=== PATIENT | male | born 1980 | race Caucasian/White ===

== ENCOUNTER → 2019-12-02 | Outpatient (CLI) | payer MEDICARE ==
--- NOTE | 2019-12-02 18:27 | Diagnostic Imaging Report ---
INDICATION: Pain. COMPARISON: None available. TECHNIQUE: Four radiographs of the left femur dated December 02, 2019. FINDINGS: A longstem left total knee arthroplasty is noted with resection of the mid to distal femur with prosthesis in place. No evidence of hardware complication. No acute fracture or dislocation. No destructive osseous process. No suspicious radiopaque foreign body. Cement material is noted about the tip of the femoral prosthesis. IMPRESSION: Extensive postsurgical changes without evidence of hardware complication or acute osseous abnormality. Dictated by: Dictated on workstation # [id number]
--- NOTE | 2019-12-03 09:49 | Diagnostic Imaging Report ---
INDICATION: Nasal surgery 1 year ago. Patient is concerned of a broken nasal bone. FINDINGS: 3 views. Nasal bone appears intact as does the inferior nasal spine. Nasal septum shows mild deviation to the right. No fractures are demonstrated. The paranasal sinuses are well-aerated and clear. IMPRESSION: 1. No evidence of nasal bone fracture. Nasal septum is deviated to the right. 2. Paranasal sinuses are well-aerated and clear. Dictated by: Dictated on workstation # [id number]
== END ==
LOC: RAD FS 15:00
PROVIDERS: ATTEND Nurse Practitioner Family
DX: M79.652 Pain in left thigh (principal); J34.89 Other specified disorders of nose and nasal sinuses; J34.2 Deviated nasal septum; Z96.652 Presence of left artificial knee joint
CPT/HCPCS: 70150; 73552

== ENCOUNTER → 2020-09-10 | Outpatient (CLI) | payer MEDICARE ==
--- NOTE | 2020-09-10 09:41 | Diagnostic Imaging Report ---
PROCEDURE: CT sinuses without contrast TECHNIQUE: Multiple contiguous axial images were obtained through the sinuses without the use of intravenous contrast. Coronal and sagittal reformations were then performed. Auto Exposure Controls were utilized during the CT exam to meet ALARA standards for radiation dose reduction. INDICATION: Chronic rhinitis and chronic sinusitis with chronic headaches. No prior studies are available for comparison. FINDINGS: The frontal sinus is clear. There is opacification of several anterior ethmoid air cells. Sphenoid sinuses clear. Mastoids are well aerated. Bilateral maxillary sinuses are clear. There are some postsurgical changes involving medial wall left maxillary sinus. No mucosal thickening or air-fluid levels are seen within the maxillary sinuses. Ostiomeatal complexes are patent. IMPRESSION: No evidence of sinusitis. Dictated by: Dictated on workstation # [id number]
== END ==
LOC: RAD FS 08:30
PROVIDERS: ATTEND Nurse Practitioner Family
DX: J32.9 Chronic sinusitis, unspecified (principal); J31.0 Chronic rhinitis; Z98.890 Other specified postprocedural states
CPT/HCPCS: 70486

== ENCOUNTER → 2020-09-25 | Outpatient (CLI) | payer MEDICARE ==
[~2020-09-25] MED LIST: GADOBUTROL 7.5 MMOL/7.5 ML (GADAVIST) VIAL IV ONE
--- NOTE | 2020-09-25 10:28 | Diagnostic Imaging Report ---
PROCEDURE: MR imaging of the brain with and without contrast. TECHNIQUE: Multiplanar, multisequence MR imaging of the brain was performed with and without contrast. INDICATION: Migraines for 2 months. 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 COMPARISON: none Findings: No acute ischemia, mass, or hemorrhage. No abnormal enhancement. No focal signal abnormalities are seen. The ventricles, cortical sulci, and basilar cisterns are symmetric and unremarkable. There is flattening of the pituitary. The major intracranial flow voids are intact. The brainstem and posterior fossa are unremarkable. The paranasal sinuses and mastoid air cells demonstrate normal signal characteristics. The globes and orbits are symmetric and unremarkable. The scalp and calvarium have a normal appearance. Impression: 1. No acute ischemia, mass, or hemorrhage. No focal signal abnormalities. No abnormal enhancement to suggest intracranial metastatic disease. Dictated by: Dictated on workstation # [id number]
== END ==
LOC: RAD 08:45
PROVIDERS: ATTEND Nurse Practitioner Family
DX: G43.909 Migraine, unspecified, not intractable, without status migrainosus (principal); Z85.830 Personal history of malignant neoplasm of bone
CPT/HCPCS: 70553

== ENCOUNTER 2021-04-04 20:00 | Emergency (ER) | payer MEDICARE ==
[~2021-04-04] VITALS: Ht 176 cm; Wt 83.4 kg
--- OUTSIDE RECORDS SUMMARY | 2021-04-04 20:06 | XMS REPORT | Encounter Summary ---
Author Author [facility] Organization [facility] Address Unknown Phone Unavailable Care Team Providers Care Pressfitter Name Role Phone Arturo Gomez MD [phone] Unavailable Javier Murillo MD Unavailable Outpatient, Radiologist Unavailable Unavailable Renetta Melo SUPERVISOR TUNNEL HEADING-LABEL STAMPER Unavailable [phone] Harley Ramos MD Unavailable Unavailable Harley Ramos MD Unavailable Ivelisse Langley RN Unavailable Unavailable Deanne Garrido APRN PCP Encounter Details Care Team Description Date Type Department 02/22/2021 Travel Social History Date Tobacco Use Types Packs/Day Years Used Never Smoker 0 0 Smokeless Tobacco: Never Used Comments Alcohol Use Standard Drinks/Week No 0 (1 standard drink = 0.6 o z pure alcohol) Sex Assigned at Date Recorded Male 01/14/2020 12:11 PM CDT Date Recorded COVID-19 Exposure Response 02/22/2021 7:32 AM CDT In the last month, have you been in contact with [facility] to assess someone who was confirmed or suspected to have Coronavirus / COVID-19? documented as of this encounter Functional Status Date of Assessment Functional Status Response 08/25/2020 Does the patient have a hearing impairment: No 08/25/2020 Does the patient have a visual impairment: Yes 08/25/2020 Does the patient have impaired ambulation: Yes 08/25/2020 Does the patient have an activity of daily living No (ADL) impairment: 08/25/2020 Does the patient have an instrumental activity of No daily living (IADL) impairment: Date of Assessment Cognitive Status Response 08/25/2020 Does the patient have a cognitive impairment: No documented as of this encounter Plan of Treatment Not on filedocumented as of this encounter Visit Diagnoses Not on filedocumented in this encounter Additional Health Concerns Noted Time Assessment 01/10/2020 9:03 AM CDT PHQ-9 Depression Total Score: 13 02/18/2021 12:39 PM CDT A fall risk assessment has been complet ed for the patient 01/08/2021 11:55 AM CDT PHQ-2 Depression Total Score: 2 documented as of this encounter Care Teams Start Date End Date Pressfitter Relationship Specialty 01/27/21 Deanne Garrido, SUPERVISOR TUNNEL HEADING PCP - General Nurse [address] [place] [phone] 09/24/15 Arturo Gomez MD REFERRING MD Family Forwarding Address Medicine Unknown 09/24/15 Javier Murillo MD Surgery, [address] Orthopedic Med Office d [address] [place] [address] 09/25/15 Outpatient, Radiologist 10/19/15 Renetta Melo, Nurse SUPERVISOR TUNNEL HEADING-LABEL STAMPER Practitioner [address] Med Office Bld [address] [place] [address] 10/28/15 Harley Ramos MD Surgery, No Active License Orthopedic Do Not Use 12/30/15 Harley Ramos MD Surgery, [address] Orth[address] [place], [place] [id number] 01/15/16 Ivelisse Langley RN documented as of this encounter
--- OUTSIDE RECORDS SUMMARY | 2021-04-04 20:06 | XMS REPORT | Encounter Summary ---
Author Author [facility] Organization [facility] Address Unknown Phone Unavailable Care Team Providers Care Employment Legal Assistant Name Role Phone Arturo Gomez MD [phone] Unavailable Javier Murillo MD Unavailable Outpatient, Radiologist Unavailable Unavailable Renetta Melo COMPLIANCE CONSULTANT-FLAT SCREEN WORKER Unavailable [phone] Harley Ramos MD Unavailable Unavailable Harely Ramos MD Unavailable Ivelisse Langley RN Unavailable Unavailable Deanne Garrido COMPLIANCE CONSULTANT PCP Reason for Referral * Radiology Services (Routine) - Closed Diagnoses / Procedures Referred By Contact Referred To Conta ct Specialty Diagnoses Personal history of osteosarcoma Procedures FEMUR 2 [place] [id number] [place] [address] Radiology Referral ID Status Reason Start Date Expiration Visits Vi sits Date Requested Authorized [id number] Closed 03/26/2020 03/26/2021 1 1 S ACCOUNT COORDINATOR * Radiology Services (Routine) - Closed Diagnoses / Procedures Referred By Contact Referred To Conta ct Specialty Diagnoses Personal history of osteosarcoma Procedures KNEE 1 [place] 2 [place] [id number] [address] Office [address] [place] [address] Radiology Referral ID Status Reason Start Date Expiration Visits Vi sits Date Requested Authorized [id number] Closed 03/26/2020 03/26/2021 1 1 S ACCOUNT COORDINATOR Reason for Visit * Radiology Services (Routine) - Closed Diagnoses / Procedures Referred By Contact Referred To Conta ct Specialty Diagnoses Personal history of osteosarcoma Procedures FEMUR 2 [place] [address] Med Office Bld [address] [place] [address] Radiology Referral ID Status Reason Start Date Expiration Visits Vi sits Date Requested Authorized [id number] Closed 03/26/2020 03/26/2021 1 1 Encounter Details Care Team Description Date [place] [address] Med Office d [address] [place] [address] 03/23/2021 [facility] Sports Medicine and Encounter Performance: [facility]: [id number] [place] [address] Social History Date Tobacco Use Types Packs/Day Years Used Never Smoker 0 0 Smokeless Tobacco: Never Used Comments Alcohol Use Standard Drinks/Week No 0 (1 standard drink = 0.6 o z pure alcohol) Sex Assigned at Date Recorded Male 01/14/2020 12:11 PM CDT Date Recorded COVID-19 Exposure Response 03/23/2021 12:49 PM SALES ACCOUNT COORDINATOR In the last month, have you been in contact with No / Unsure someone who was confirmed or suspected to [...] impairment: No documented as of this encounter Medications at Time of Discharge Start Date End Date Medication Sig Dispensed Refills 02/22/2016 acetaminophen (TYLENOL) Take 2 Tabs 0 325 mg tablet by mouth four times daily. AFTER one week taking it as scheduled, you may transition to use as needed. Do not take more than 4 grams (4,000 mg) in 24 hours. ALPRAZolam (XANAX) 0.5 mg Take 0.5 mg 0 tablet by mouth twice daily. 11/27/2020 amitriptyline (ELAVIL) 25 Take one 60 tablet 5 mg tablet tablet by mouth daily. Take 25mg before bed for one week. Then, take 50mg before bed thereafter. 01/27/2021 atorvastatin (LIPITOR) 40 Take one 90 tablet 0 mg tablet tablet by mouth daily. 12/20/2019 azelastine (ASTELIN) 137 Apply two 30 mL 11 mcg (0.1 %) nasal sprays to sprayIndications: each nostril perennial allergic as directed rhinitis twice daily. Use in each nostril as directed Indications: non-seasonal allergic stuffy and runny nose 12/20/2019 fluticasone propionate 2 sprays in 48 g 11 (FLONASE) 50 each nostril mcg/actuation nasal bid spray, Indications: suspensionIndications: inflammation allergic rhinitis of the nose due to an allergy HYDROcodone/acetaminophen Take 1 tablet 0 (NORCO) 5/325 mg tablet by mouth every 6 hours as needed for Pain 01/27/2021 losartan (COZAAR) 50 mg Take one 90 tablet 3 tablet tablet by mouth daily. 05/14/2019 Miscellaneous Medical Left hinged 1 each 1 Supply [facility] knee brace 11/23/2017 Miscellaneous Medical Neoprene (or 1 Device 0 Supply [facility] equivalent) left knee sleeve with patella cut-out. fit to size 02/22/2016 ondansetron hcl (ZOFRAN) Take 1 Tab by 30 Tab 1 4 mg tablet mouth every 6 hours as needed for Nausea. pantoprazole DR Take 40 mg by 0 (PROTONIX) 40 mg tablet mouth daily. 02/27/2019 pregabalin (LYRICA) 150 every 12 0 mg capsule hours. rOPINIRole (REQUIP) 0.25 Take 0.25 mg 0 mg tablet by mouth three times daily. Take 0.5mg 1-2 tabs hs 11/27/2020 sertraline (ZOLOFT) 25 mg Take one 7 tablet 0 tablet tablet by mouth daily. SUMAtriptan succinate Take 50 mg by 0 (IMITREX) 50 mg tablet mouth once. Take one tablet by mouth at onset of headache. May repeat after 2 hours if needed. Max of 200 mg in 24 hours. documented as of this encounter Discharge Disposition Code Departure Means Destination Disposition Home Home or Self Care documented in this encounter Plan of Treatment Not on filedocumented as of this encounter Procedures Comments Procedure Name Priority Date/Time Associated Diag nosis KNEE 1 OR 2 VIEWS LEFT Routine 03/23/2021 Persona l history of 2:42 PM SALES ACCOUNT COORDINATOR osteosarcoma FEMUR 2 VIEWS LEFT Routine 03/23/2021 Personal hi story of 2:42 PM SALES ACCOUNT COORDINATOR osteosarcoma documented in this encounter Results * FEMUR 2 VIEWS LEFT (03/23/2021 2:42 PM SALES ACCOUNT COORDINATOR) Modality Anatomical Region Laterality Computed Radiography Leg Left Specimen Impressions [facility] RESULTS - 03/23/2021 3:15 PM SALES ACCOUNT COORDINATOR 1. Resection of the left distal femur with longstem prosthesis and incorporated TKA. No new periprosthetic lucency or fracture. Unchanged cortical thickening and extruded cement along the proximal stem of the femoral component. 2. Left hip joint space is maintained. Finalized by Gary Temple M.D. on 03/23/2021 3:15 PM. Dictated by Gary Temple M.D. on 03/23/2021 3:10 PM. Narrative [facility] RESULTS - 03/23/2021 3:15 PM SALES ACCOUNT COORDINATOR Exam: KNEE 1 OR 2 VIEWS LEFT, FEMUR 2 VIEWS LEFT CLINICAL INDICATION: 40 years. Pain. COMPARISON: Radiographs 08/25/2020. Procedure Note Gary Temple MD - 03/23/2021 Exam: KNEE 1 OR 2 VIEWS LEFT, FEMUR 2 VIEWS LEFT CLINICAL INDICATION: 40 years. Pain. COMPARISON: Radiographs 08/25/2020. IMPRESSION 1. Resection of the left distal femur w ith longstem prosthesis and incorporated TKA. No new periprosthetic lucency or fracture. Unchanged cortical thickening and extruded cement along the proximal stem of the femoral component. 2. Left hip joint space is maintained. Finalized by Gary Temple M.D. on 03/23/2021 3:15 PM. Dictated by Gary Temple M.D. on 03/23/2021 3:10 PM. Performing Organization Address [facility] P yulia Number [facility] RESULTS * KNEE 1 OR 2 VIEWS LEFT (03/23/2021 2:42 PM SALES ACCOUNT COORDINATOR) Modality Anatomical Region Laterality Computed Radiography Knee Left Specimen Impressions [facility] RESULTS - 03/23/2021 3:15 PM SALES ACCOUNT COORDINATOR 1. Resection of the left distal femur with longstem prosthesis and incorporated TKA. No new periprosthetic lucency or fracture. Unchanged cortical thickening and extruded cement along the proximal stem of the femoral component. 2. Left hip joint space is maintained. Finalized by Gary Temple M.D. on 03/23/2021 3:15 PM. Dictated by Gary Temple M.D. on 03/23/2021 3:10 PM. Narrative [facility] RESULTS - 03/23/2021 3:15 PM SALES ACCOUNT COORDINATOR Exam: KNEE 1 OR 2 VIEWS LEFT, FEMUR 2 VIEWS LEFT CLINICAL INDICATION: 40 years. Pain. COMPARISON: Radiographs 08/25/2020. Procedure Note Gary Temple MD - 03/23/2021 Exam: KNEE 1 OR 2 VIEWS LEFT, FEMUR 2 VIEWS LEFT CLINICAL INDICATION: 40 years. Pain. COMPARISON: Radiographs 08/25/2020. IMPRESSION 1. Resection of the left distal femur w ith longstem prosthesis and incorporated TKA. No new periprosthetic lucency or fracture. Unchanged cortical thickening and extruded cement along the proximal stem of the femoral component. 2. Left hip joint space is maintained. Finalized by Gary Temple M.D. on 03/23/2021 3:15 PM. Dictated by Gary Temple M.D. on 03/23/2021 3:10 PM. Performing Organization Address [facility] P yulia Number [facility] RESULTS documented in this encounter Visit Diagnoses Diagnosis Personal history of osteosarcoma Personal history of malignant neoplasm of bone documented in this encounter Additional Health Concerns Noted Time Assessment 01/10/2020 9:03 AM CDT PHQ-9 Depression Total Score: 13 03/23/2021 2:24 PM SALES ACCOUNT COORDINATOR A fall risk assessment has been complet ed for the patient 01/08/2021 11:55 AM CDT PHQ-2 Depression Total Score: 2 documented as of this encounter Care Teams Start Date End Date Employment Legal Assistant Relationship Specialty 01/27/21 Deanne Garrido, COMPLIANCE CONSULTANT PCP - General Nurse [address] [place] [phone] 09/24/15 Arturo Gomez MD REFERRING Family Forwarding Address Medicine Unknown 09/24/15 Javier Murillo MD Surgery, [address] [facility] Orthopedic Med Office [facility] [address] [place], [place] [phone] 09/25/15 Outpatient, Radiologist 10/19/15 Renetta Melo, Nurse COMPLIANCE CONSULTANT-FLAT SCREEN WORKER Practitioner [address] Med Office d [facility] [address] [place] [address] 10/28/15 Harley Ramos MD Surgery, No Active License Orthopedic Do Not Use 12/30/15 Harley Ramos MD Surgery, [address] Orthopedic [facility] [address] [place] [address] 01/15/16 Ivelisse Langley RN documented as of this encounter
--- OUTSIDE RECORDS SUMMARY | 2021-04-04 20:06 | XMS REPORT | Encounter Summary ---
Author Author [facility] Organization [facility] Address Unknown Phone Unavailable Care Team Providers Care Automotive Professional Name Role Phone Arturo Gomez MD [phone] Unavailable Javier Murillo MD Unavailable Outpatient, Radiologist Unavailable Unavailable Renetta Melo TECHNOLOGY AUDITOR-ENERGY INFRASTRUCTURE ENGINEER Unavailable [phone] Harley Ramos MD Unavailable Unavailable Harley Ramos MD Unavailable Ivelisse Langley RN Unavailable Unavailable Deanne Garrido TECHNOLOGY AUDITOR PCP Encounter Details Care Team Description Date Type Department Desiree Main RN Syncope and collapse (Primary Dx) 02/18/2021 Orders Only Cardiology: [facility], [address] [place] [address]. [address] [place] [address] Social History Date Tobacco Use Types Packs/Day Years Used Never Smoker 0 0 Smokeless Tobacco: Never Used Comments Alcohol Use Standard Drinks/Week No 0 (1 standard drink = 0.6 o z pure alcohol) Sex Assigned at Date Recorded Male 01/14/2020 12:11 PM CDT Date Recorded COVID-19 Exposure Response 02/18/2021 12:26 PM CDT In the last month, have you [...] filedocumented as of this encounter Visit Diagnoses Diagnosis Syncope and collapse - Primary documented in this encounter Additional Health Concerns Noted Time Assessment 01/10/2020 9:03 AM CDT PHQ-9 Depression Total Score: 13 02/18/2021 12:39 PM CDT A fall risk assessment has been complet ed for the patient 01/08/2021 11:55 AM CDT PHQ-2 Depression Total Score: 2 documented as of this encounter Care Teams Start Date End Date Automotive Professional Relationship Specialty 01/27/21 Deanne Garrido, AILIN PCP - General Nurse [address] [place] [phone] 09/24/15 Arturo Gomez MD REFERRING MD Family Forwarding Address Medicine Unknown 09/24/15 Javier Murillo MD Surgery, [address] [facility] [address] Orthopedic Med Office d [facility] [place] [address] 09/25/15 Outpatient, Radiologist 10/19/15 Renetta Melo Nurse TECHNOLOGY AUDITOR-ENERGY INFRASTRUCTURE ENGINEER Practitioner [address] Med Office d [address] [place] [address] 10/28/15 Harley Ramos MD Surgery, No Active License Orthopedic Do Not Use 12/30/15 Harley Ramos MD Surgery, [address] Orthopedic [address] [place], [place] [id number] 01/15/16 Ivelisse Langley RN documented as of this encounter
--- OUTSIDE RECORDS SUMMARY | 2021-04-04 20:06 | XMS REPORT | Encounter Summary ---
Author Author [facility] Organization [facility] Address Unknown Phone Unavailable Care Team Providers Care Electromechanical Equipment Tester Name Role Phone Arturo Gomez MD [phone] Unavailable Javier Murillo MD Unavailable Outpatient, Radiologist Unavailable Unavailable Renetta Melo MANAGER CARD-INSOLE BEVELER Unavailable [phone] Harley Ramos MD Unavailable Unavailable Harley Ramos MD Unavailable Ivelisse Langley RN Unavailable Unavailable Deanne Garrido MANAGER CARD PCP Reason for Referral * Radiology Services (Routine) - New Request Diagnoses / Procedures Referred By Contact Referred To Conta ct Specialty Diagnoses H/O osteosarcoma Procedures [place] [id number] [employer] [address] [place] [address] Radiology Referral ID Status Reason Start Date Expiration Visits Vi sits Date Requested Authorized [id number] New Request 03/23/2021 09/20/2022 1 1 RVES CLERK * Radiology Services (Routine) - New Request Diagnoses / Procedures Referred By Contact Referred To Conta ct Specialty Diagnoses H/O osteosarcoma Procedures KNEE 1 OR 2 [place] [id number] [facility] [address] [place] [address] Radiology Referral ID Status Reason Start Date Expiration Visits Vi sits Date Requested Authorized [id number] New Request 03/23/2021 03/23/2022 1 1 RVES CLERK * Radiology Services (Routine) - New Request Diagnoses / Procedures Referred By Contact Referred To Conta ct Specialty Diagnoses H/O osteosarcoma Procedures FEMUR 2 [place] [id number] [address] [employer] [facility] [address] [place] [address] Radiology Referral ID Status Reason Start Date Expiration Visits Vi sits Date Requested Authorized [id number] New Request 03/23/2021 03/23/2022 1 1 RVES CLERK Reason for Visit * Reason Comments Follow Up RTC 1yr Chidi, Xray, CT Chest same day @ [facility]: Left distal femoral replacement prosthesis Revised DFRP on 02/18/2016 Encounter Details Care Team Description Date [place] [id number] [address] [employer] [facility] [address] [place] [address] H/O osteosarcoma (Primary Dx) 03/23/2021 Office Visit [facility]: [address] [place] [address] Social History Date Tobacco Use Types Packs/Day Years Used Never Smoker 0 0 Smokeless Tobacco: Never Used Comments Alcohol Use Standard Drinks/Week No 0 (1 standard drink = 0.6 o z pure alcohol) Sex Assigned at Date Recorded Male 01/14/2020 12:11 PM CDT Date Recorded COVID-19 Exposure Response 03/23/2021 12:49 PM RESERVES CLERK In the last month, have you been in contact with No / Unsure someone who was confirmed or suspected to have Coronavirus / COVID-19? documented as of this encounter Last Filed Vital Signs Reading Time Taken Comments Vital Sign 138/98 03/23/2021 2:23 PM RESERVES CLERK Blood Pressure 85 03/23/2021 2:23 PM RESERVES CLERK Pulse 36.6 C (97.8 F) 03/23/2021 2:23 PM RESERVES CLERK Temperature 18 03/23/2021 2:23 PM RESERVES CLERK Respiratory Rate 97% 03/23/2021 2:23 PM RESERVES CLERK Oxygen Saturation - - Inhaled Oxygen Concentration 82.1 kg (181 lb) 03/23/2021 2:23 PM RESERVES CLERK Weight 177.8 cm (5' 10") 03/23/2021 2:23 PM RESERVES CLERK Height 25.97 03/23/2021 2:23 PM RESERVES CLERK Body Mass Index documented in this encounter Functional Status Date of Assessment [...] impairment: No documented as of this encounter Progress Notes * Javier Murillo MD - 03/23/2021 3:30 PM RESERVES CLERK Images from the original note were not included. Patient Name: Samuel Candelario Date of : 1980 DATE OF SERVICE: 03/23/2021 ATTENDING PHYSICIAN: JAVIER MURILLO MD. DATE OF SURGERY:04/20/2006 PROCEDURE PERFORMED: Left distal femoral replacement prosthesis Revised DFRP on02/18/2016 DIAGNOSIS: Osteosarcoma INTERVAL HISTORY: Samuel Candelario presents in follow up in reference to the a sean referenced procedure, who is now about 15 years out from his initial surgic al resection for the osteosarcoma. The patient is progressing along quite nicely at this time, stating that he is performing activities as to his desires. The p atient denies any significant functional deficits at this time other than descri eri some mild (and expected) rich-wound numbness. He has been utilizing the extremity in a normal fashion and does feel that he is getting back to his pre-operative functional status. He has not palpated any ad ditional or new nodules or masses since last visit. Medical History: Diagnosis Date Anxiety Depression Frequent sinus infections Generalized headaches Irritable bowel disease Joint pain Left leg Nausea Nerve injury Neuropathy leg post surgery cancer Neuropathy Personal history of osteosarcoma 09/24/2015 PONV (postoperative nausea and vomiting) Anethesia makes me puke Sarcoma (HCC) Unspecified deficiency anemia When on chemo Surgical History: Procedure Laterality Date BONE BIOPSY Left 2005 left distal femur PORTACATH PLACEMENT 01/2006 KNEE REPLACEMENT Left 04/22/2006 With partial femur replacement LEFT REVISION TOTAL KNEE ARTHROPLASTY WITH DISTAL FEMUR REPLACEMENT OPEN RED UCTION INTERNAL FIXATION OF FEMUR Left 02/18/2016 Performed by Harley Ramos MD at [facility] OR SINUS SURGERY 2019 SEPTOPLASTY N/A 01/31/2020 Performed by Helga Ruiz MD at [facility] OR SUBMUCOUS RESECTION TURBINATE PARTIAL Bilateral 01/31/2020 Performed by Helga Ruiz MD at [facility] OR KNEE REPLACEMENT total knee replacement with femur KNEE SURGERY Current Outpatient Medications: acetaminophen (TYLENOL) 325 mg tablet, Take 2 Tabs by mouth four times tanika y. AFTER one week taking it as scheduled, you may transition to use as needed. D o not take more than 4 grams (4,000 mg) in 24 hours., Disp: , Rfl: 0 ALPRAZolam (XANAX) 0.5 mg tablet, Take 0.5 mg by mouth twice daily., Disp: , Rfl: amitriptyline (ELAVIL) 25 mg tablet, Take one tablet by mouth daily. Take 2 5mg before bed for one week. Then, take 50mg before bed thereafter., Disp: 60 ta blet, Rfl: 5 atorvastatin (LIPITOR) 40 mg tablet, Take one tablet by mouth daily., Disp: 90 tablet, Rfl: azelastine (ASTELIN) 137 mcg (0.1 %) nasal spray, Apply two sprays to each nostril as directed twice daily. Use in each nostril as directed Indications: n on-seasonal allergic stuffy and runny nose, Disp: 30 mL, Rfl: 11 fluticasone propionate (FLONASE) 50 mcg/actuation nasal spray, suspension, 2 sprays in each nostril bid Indications: inflammation of the nose due to an al lergy, Disp: 48 g, Rfl: 11 HYDROcodone/acetaminophen (NORCO) 5/325 mg tablet, Take 1 tablet by mouth e very 6 hours as needed for Pain, Disp: , Rfl: losartan (COZAAR) 50 mg tablet, Take one tablet by mouth daily., Disp: 90 t ablet, Rfl: 3 Miscellaneous Medical Supply misc, Left hinged knee brace, Disp: 1 each, Rf l: 1 Misc[employer] misc, Neoprene (or equivalent) left knee sleev e with patella cut-out. fit to size, Disp: 1 Device, Rfl: 0 ondansetron hcl (ZOFRAN) 4 mg tablet, Take 1 Tab by mouth every 6 hours as needed for Nausea., Disp: 30 Tab, Rfl: [address] (PROTONIX) 40 mg tablet, Take 40 mg by mouth daily., Disp: , Rfl: pregabalin (LYRICA) 150 mg capsule, every 12 hours., Disp: , Rfl: rOPINIRole (REQUIP) 0.25 mg tablet, Take 0.25 mg by mouth three times daily . Take 0.5mg 1-2 tabs hs, Disp: , Rfl: sertraline (ZOLOFT) 25 mg tablet, Take one tablet by mouth daily., Disp: 7 tablet, Rfl: 0 SUMAtriptan succinate (IMITREX) 50 mg tablet, Take 50 mg by mouth once. Julio César e one tablet by mouth at onset of headache. May repeat after 2 hours if needed. Max of 200 mg in 24 hours., Disp: , Rfl: REVIEW OF SYSTEMS: No fevers, chills, weight loss or other constitutional disord ers. No chest pain, shortness of breath, hemoptysis, bleeding diatheses, or othe r pulmonary or hematological problems. No adenopathy, unexpected swelling, cardi ac, neurologic, or GI problems. PHYSICAL EXAMINATION: Blood pressure (!) 138/98, pulse 85, temperature 36.6 C (97.8 F), temperatur e source Temporal, resp. rate 18, height 177.8 cm (70"), weight 82.1 kg (181 lb) , SpO2 97 %. General: Awake, alert, and oriented x3, in no acute distress, seated in a chair in exam room. Musculoskeletal: The wound is well healed. Normal contour and alignment. No mas ses or nodules are appreciated. No adenopathy or wound problems or complications . No focal areas of tenderness or unexpected swelling. Motor function is 5/5 in all associated groups, sensation is grossly intact. RADIOGRAPHS: ASSESSMENT: The patient is 15 years s/p radical resection left distal femur rec onstruction with a distal femoral placement prosthesis. He underwent revision o f this prosthesis on February 18, 2016.. Overall he continues to do quite well wi th progression of function and no signs of local recurrence of disease. PLAN: 1. Will continue to monitor by clinical exam and radiographs. I educated the pat ient as to the proper follow up and monitoring (staging studies) necessary for t his diagnosis. Javier Murillo MD Professor of Orthopedic Surgery [facility] RVES CLERK documented in this encounter Plan of Treatment Order Schedule Name Type Priority Associated Diag noses Expected: 09/20/2021 (Approximate), Expi res: 03/23/2022 FEMUR 2 VIEWS LEFT Imaging Routine H/O osteosa rcoma Expected: 09/20/2021 (Approximate), Expi res: 03/23/2022 KNEE 1 OR 2 VIEWS LEFT Imaging Routine H/O ost eosarcoma Expected: 09/20/2021 (Approximate), Expi res: 03/23/2022 CT CHEST WO CONTRAST Imaging Routine H/O osteo sarcoma documented as of this encounter Visit Diagnoses Diagnosis H/O osteosarcoma - Primary Personal history of malignant neoplasm of bone documented in this encounter Additional Health Concerns Noted Time Assessment 01/10/2020 9:03 AM CDT PHQ-9 Depression Total Score: 13 03/23/2021 2:24 PM RESERVES CLERK A fall risk assessment has been complet ed for the patient 01/08/2021 11:55 AM CDT PHQ-2 Depression Total Score: 2 documented as of this encounter Care Teams Start Date End Date Electromechanical Equipment Tester Relationship Specialty 01/27/21 Deanne Garrido, MANAGER CARD PCP - General Nurse [address] [place] [address] 09/24/15 Arturo Gomez MD REFERRING Family Forwarding Address Medicine Unknown 09/24/15 Javier Murillo MD Surgery, [address] [facility] Orthopedic Med Office [address] [place] [address] 09/25/15 Outpatient, Radiologist 10/19/15 Renetta Melo, Nurse MANAGER CARD-INSOLE BEVELER [facility]ition[facility] [address] [facility] Office [address] [place] [address] 10/28/15 Harley Ramos MD Surgery, No Active License Orthopedic Do Not Use 12/30/15 Harley Ramos MD Surgery, [address] [place] [address] 01/15/16 Ivelisse Langley RN documented as of this encounter
--- OUTSIDE RECORDS SUMMARY | 2021-04-04 20:06 | XMS REPORT | Encounter Summary ---
Author Author [facility] Organization [facility] Address Unknown Phone Unavailable Care Team Providers Care Smoking Tobacco Packer Hand Name Role Phone Arturo Gomez MD [phone] Unavailable Javier Murillo MD Unavailable Outpatient, Radiologist Unavailable Unavailable Renetta Melo TRIPLE AIR VALVE TESTER-CERTIFIED DETENTION DEPUTY Unavailable [phone] Harley Ramos MD Unavailable Unavailable Harley Ramos MD Unavailable Ivelisse Langley RN Unavailable Unavailable Deanne Garrido APRN PCP Encounter Details Care Team Description Date Type Department 03/23/2021 Travel Social History Date Tobacco Use Types Packs/Day Years Used Never Smoker 0 0 Smokeless Tobacco: Never Used Comments Alcohol Use Standard Drinks/Week No 0 (1 standard drink = 0.6 o z pure alcohol) Sex Assigned at Date Recorded Male 01/14/2020 12:11 PM CDT Date Recorded COVID-19 Exposure Response 03/23/2021 12:49 PM GOLF BALL COVER TREATER In the last month, have you been [...] Depression Total Score: 13 03/23/2021 2:24 PM GOLF BALL COVER TREATER A fall risk assessment has been complet ed for the patient 01/08/2021 11:55 AM CDT PHQ-2 Depression Total Score: 2 documented as of this encounter Care Teams Start Date End Date Smoking Tobacco Packer Hand Relationship Specialty 01/27/21 Deanne Garrido, TRIPLE AIR VALVE TESTER PCP - General Nurse [address] [place] [id number] 09/24/15 Arturo Gomez MD REFERRING MD Family Forwarding Address Medicine Unknown 09/24/15 Javier Murillo MD Surgery, [address] Orthopedic Med Office [address] [place] [address] 09/25/15 Outpatient, Radiologist 10/19/15 Renetta Melo, Nurse TRIPLE AIR VALVE TESTER-CERTIFIED DETENTION DEPUTY Practitioner [address] Med Office [address] [place] [address] 10/28/15 Harley Ramos MD Surgery, No Active License Orthopedic Do Not Use 12/30/15 Harley Ramos MD Surgery, [address] [place], [place] [id number] 01/15/16 Ivelisse Langley RN documented as of this encounter
--- OUTSIDE RECORDS SUMMARY | 2021-04-04 20:06 | XMS REPORT | Encounter Summary ---
Author Author [facility] Organization [facility] Address Unknown Phone Unavailable Care Team Providers Care Can Coverer Name Role Phone Arturo Gomez MD [phone] Unavailable Javier Murillo MD Unavailable Outpatient, Radiologist Unavailable Unavailable Renetta Melo VP MEDICAL-ASSEMBLER DRY CELL AND BATTERY Unavailable [phone] Harley Ramos MD Unavailable Unavailable Harley Ramos MD Unavailable Ivelisse Langley RN Unavailable Unavailable Deanne Garrido VP MEDICAL PCP Reason for Referral * Pain Authorization (Routine) - Authorized Diagnoses / Procedures Referred By Contact Referred To Conta ct Specialty Diagnoses Chronic intractable headache, unspecified headache type Myalgia, other site Procedures [facility] Endy Dupree MD [address] [place] [address] [place] [address] [place] [address] Anesthesia Pain Referral ID Status Reason Start Date Expiration Visits Vi sits Date Requested Authorized [id number] Authorized 02/24/2021 02/24/2022 1 1 Reason for Visit * Reason Onset Date Comments Order Needed 02/24/2021 Encounter Details Care Team Description Date Type Department Endy Dupree MD [address] [place] [address] Order Needed 02/24/2021 Telephone Comp Spine Ctr Intervent'nl Pain: [facility]: [address] [place] [address] Social History Date Tobacco Use Types Packs/Day Years Used Never Smoker 0 0 Smokeless Tobacco: Never Used Comments Alcohol Use Standard Drinks/Week No 0 (1 standard drink = 0.6 o z pure alcohol) Sex Assigned at Date Recorded Male 01/14/2020 12:11 PM CDT Date Recorded COVID-19 Exposure Response 02/22/2021 7:32 AM CDT In the last month, have you been in contact with Dorothea ble to assess someone who was confirmed or [...] impairment: No documented as of this encounter Miscellaneous Notes * Telephone Encounter - Kiera Calderón RN - 02/24/2021 9:04 AM CDT SPG order placed ----- Message from Endy Dupree MD sent at 02/23/2021 11:10 AM CDT ----- Regarding: FW: Visit Follow-Up Question Contact: Lets do the sphenopalatine ganglion block again x2. I think Gera did them 2 we eks apart in clinic. Same order as last time. Thank you! Sincerely, Damien ----- Message ----- From: Kiera Calderón RN Sent: 02/23/2021 11:06 AM CDT To: Endy Dupree MD Subject: FW: Visit Follow-Up Question What block did you want him to follow up with and when? Looks like he just had h is SPG block done. Thanks! ----- Message ----- From: Samuel Candelario Sent: 02/22/2021 3:27 PM CDT To: Ananda Nation Spn Anesthesia Subject: Visit Follow-Up Question wanted me to msg and let him know if the block seemed to help any. I think i t did somewhat and would like to proceed with the other 2 blocks please documented in this encounter Plan of Treatment Not on filedocumented as of this encounter Results * [facility] (03/04/2021 2:00 PM CDT) Narrative OTHER OUTSIDE LAB - 03/04/2021 2:00 PM CDT Endy Dupree MD 03/04/2021 3:49 PM PROCEDURE: Bilateral Sphenopalatine Ganglion Block PREPROCEDURE DIAGNOSES: Headache, Migraine POSTPROCEDURE DIAGNOSES: Same ATTENDING: Endy Dupree MD MEDICATION: 4 mL of 0.25 % bupivacaine each side LOCAL ANESTHETIC: 0.25% bupivicaine SEDATION: None. ESTIMATED BLOOD LOSS: None. SPECIMENS REMOVED: None COMPLICATIONS: None. TECHNIQUE: A time-out was taken to identify the correct patient, procedure, and site prior to starting the procedure. Lying in a supine position with the back slightly elevated and the head in a sniffing position, an 18ga-IV catheter with the needle removed was used to spray 2% lidocaine into the nasal passage bilaterally with a total of 1.5 mL per side. A sterile cotton-tipped applicator with an 18ga IV catheter inserted in the distal hollow tip, was soaked in 0.5% bupivacaine and then gently inserted into the nares and advanced along the superior border of the middle turbinate until it came to rest against the posterior nasopharynx. A second applicator was placed in similar fashion on the other side. The applicators were left in place for 20 minutes. A syringe with 0.25% bupivacaine was then attached to t he IV catheter inserted into the tip of each applicator and 1.5mL of 0.25% bupivacaine was injected. The applicators were then removed after another 10 minutes had elapsed. The procedure was completed without complications and was tolerated well. The patient was monitored after the procedure. The patient was given postprocedure and discharge instructions to follow at home. The patient was discharged in stable condition.? ? Estimated blood loss:?none or minimal Specimens:?none Patient tolerated the procedure well with no immediate complications. Pressure was applied, and hemostasis was accomplished. Performing Organization Address City/State/ZIP Code [place] Number OTHER OUTSIDE LAB documented in this encounter Visit Diagnoses Diagnosis Chronic intractable headache, unspecifi ed headache type - Primary Myalgia, other site Chronic intractable headache, unspecifi ed headache type Myalgia, other site documented in this encounter Additional Health Concerns Noted Time Assessment 01/10/2020 9:03 AM CDT PHQ-9 Depression Total Score: 13 02/18/2021 12:39 PM CDT A fall risk assessment has been complet ed for the patient 01/08/2021 11:55 AM CDT PHQ-2 Depression Total Score: 2 documented as of this encounter Care Teams Start Date End Date Can Coverer Relationship Specialty 01/27/21 Deanne Grarido, VP MEDICAL PCP - General Nurse [address] [place] [address] 09/24/15 Arturo Gomez MD REFERRING MD Family Forwarding Address Medicine Unknown 09/24/15 Javier Murillo MD Surgery, [address] [facility] Orthopedic Med Office [facility] [address] [place] [address] 09/25/15 Outpatient, Radiologist 10/19/15 Renetta Melo, Nurse VP MEDICAL-ASSEMBLER DRY CELL AND BATTERY Practitioner [address] Med Office [facility] [address] [place] [address] 10/28/15 Harley Ramos MD Surgery, No Active License Orthopedic Do Not Use 12/30/15 Harley Ramos MD Surgery, [address] Orthopedic [facility] [address] [place], [place] [id number] 01/15/16 Ivelisse Langley RN documented as of this encounter
--- OUTSIDE RECORDS SUMMARY | 2021-04-04 20:06 | XMS REPORT | Encounter Summary ---
Author Author [facility] Organization [facility] Address Unknown Phone Unavailable Care Team Providers Care Gas Pumping Station Operator Name Role Phone Arturo Gomez MD [phone] Unavailable Javier Murillo MD Unavailable Outpatient, Radiologist Unavailable Unavailable Renetta Melo GAS OR WATER METER INSTALLER-COMPUTER ANALYST SUPERVISOR Unavailable [phone] Harley Ramos MD Unavailable Unavailable Harley Ramos MD Unavailable Ivelisse Langley RN Unavailable Unavailable Deanne Garrido GAS OR WATER METER INSTALLER PCP Reason for Visit * Reason Comments Follow Up * Pain Authorization (Routine) - Authorized Diagnoses / Procedures Referred By Contact Referred To Conta ct Specialty Diagnoses Chronic intractable headache, unspecified headache type Procedures [facility] Endy Dupree MD [address] [place] [address] [place] [address] [place] [address] Anesthesia Pain Referral ID Status Reason Start Date Expiration Visits Vi sits Date Requested Authorized [id number] Authorized 02/15/2021 02/15/2022 1 1 Encounter Details Care Team Description Date Type Department Endy Dupree MD [address] [place] [address] Chronic intractable headache, unspecifie d headache type (Primary Dx) 02/18/2021 Procedure visit [facility] Intervent'nl Pain: [facility]: [address], [address] [place] [phone] Social History Date Tobacco Use Types Packs/Day Years Used Never Smoker 0 0 Smokeless Tobacco: Never Used Comments Alcohol Use Standard Drinks/Week No 0 (1 standard drink = 0.6 o z pure alcohol) Sex Assigned at Date Recorded Male 01/14/2020 12:11 PM CDT Date Recorded COVID-19 Exposure Response 02/22/2021 7:32 AM CDT In the last month, have you been in contact with [facility] to assess someone who was confirmed or suspected to have Coronavirus / COVID-19? documented as of this encounter Last Filed Vital Signs Reading Time Taken Comments Vital Sign 121/98 02/18/2021 12:36 PM CDT Blood Pressure 85 02/18/2021 12:36 PM CDT Pulse - - Temperature - - Respiratory Rate 98% 02/18/2021 12:36 PM CDT Oxygen Saturation - - Inhaled Oxygen Concentration 82.6 kg (182 lb) 02/18/2021 12:36 PM CDT Weight 177.8 cm (5' 10") 02/18/2021 12:36 PM CDT Height 26.11 02/18/2021 12:36 PM CDT Body Mass Index documented in this encounter [...] impairment: No documented as of this encounter Procedure Notes * Endy Dupree MD - 02/18/2021 12:45 PM CDT Associated Order(s): [facility] Attending Surgeon: Endy Dupree MD Anesthesia: Local Pre-Procedure Diagnosis: 1. Chronic intractable headache, unspecified headache type Post-Procedure Diagnosis: 1. Chronic intractable headache, unspecified headache type [facility] Nerve: other peripheral nerve or branch (Please Comment) (Sphenopalatine ganglio n nerve block) Laterality: bilateral Consent: Consent obtained: written Consent given by: patient Alternatives discussed: no treatment Discussed with patient the purpose of the treatment/procedure, other ways of elida ating my condition, including no treatment/ procedure and the risks and benefits of the alternatives. Patient has decided to proceed with treatment/procedure. [place] Protocol: Relevant documents: relevant documents present and verified Test results: test results available and properly labeled Imaging studies: imaging studies available Required items: required blood products, implants, devices, and special equipmen t available Site marked: the operative site was marked Patient identity confirmed: Patient identify confirmed verbally with patient. Time out: Immediately prior to procedure a "time out" was called to verify the c orrect patient, procedure, equipment, manager support services and site/side marked as requ ired Procedures Details: Indications: Pain Relief Preparation: Patient was prepped and draped in the usual sterile fashion. Patient position: supine Medications administered: 4 mL bupivacaine PF 0.25 % Outcome: Pain unchanged Patient tolerance: tolerated well, no immediate complications Comments: PROCEDURE: Bilateral Sphenopalatine Ganglion Block PREPROCEDURE DIAGNOSES: Headache, Migraine POSTPROCEDURE DIAGNOSES: Same ATTENDING: Endy Dupree MD MEDICATION: 10 mL of 0.25 % bupivacaine each side LOCAL ANESTHETIC: 2% lidocaine SEDATION: None. ESTIMATED BLOOD LOSS: None. SPECIMENS REMOVED: None COMPLICATIONS: None. TECHNIQUE: A time-out was taken to identify the correct patient, procedure, and site prior to starting the procedure. Lying in a supine position with the back s lightly elevated and the head in a sniffing position, an 18ga-IV catheter with t he needle removed was used to spray 2% lidocaine into the nasal passage bilatera lly with a total of 1.5 mL per side. A sterile cotton-tipped applicator with an 18ga IV catheter inserted in the distal hollow tip, was soaked in 0.25% bupivaca ine and then gently inserted into the nares and advanced along the superior bord er of the middle turbinate until it came to rest against the posterior nasophary nx. A second applicator was placed in similar fashion on the other side. The applicators were left in place for 20 minutes. A syringe with 0.25% bupivaca ine was then attached to the IV catheter inserted into the tip of each applicato r and 0.5mL of 0.5% bupivacaine was injected. The applicators were then removed after another 10 minutes had elapsed. The procedure was completed without complications and was tolerated well. The pa tient was monitored after the procedure. The patient was given postprocedure and discharge instructions to follow at home. The patient was discharged in stable condition. Estimated blood loss: none or minimal Specimens: none Patient tolerated the procedure well with no immediate complications. Pressure w as applied, and hemostasis was accomplished. Estimated blood loss: none or minimal Specimens: none Patient tolerated the procedure well with no immediate complications. Pressure w as applied, and hemostasis was accomplished. documented in this encounter Plan of Treatment Not on filedocumented as of this encounter Procedures Comments Procedure Name Priority Date/Time Associated Diag nosis IL INJECTION AA&/STRD Routine 02/18/2021 Chronic intractable OTHER PERIPHERAL 12:45 PM CDT headache, unspecifi ed NERVE/BRANCH headache type documented in this encounter Visit Diagnoses Diagnosis Chronic intractable headache, unspecifi ed headache type - Primary documented in this encounter Administered Medications Action Date Dose Rate Site Medication Order MAR Action 02/18/2021 5:05 PM CDT 4 mL bupivacaine PF (MARCAINE) 0.25 % Given injection 4 mL 4 mL, Injection, ONCE PRN, 1 dose, Starting on Arely 02/18/21 at 1705, Until Arely 02/18/21 at 1705 documented in this encounter Orders First Ordered Date Medications Ordered That Might Not Have Count Last Ordered Date Been Administered bupivacaine PF (MARCAINE) 0.25 % 1 02/18 injection 4 mL documented in this encounter Additional Health Concerns Noted Time Assessment 01/10/2020 9:03 AM CDT PHQ-9 Depression Total Score: 13 02/18/2021 12:39 PM CDT A fall risk assessment has been complet ed for the patient 01/08/2021 11:55 AM CDT PHQ-2 Depression Total Score: 2 documented as of this encounter Care Teams Start Date End Date Gas Pumping Station Operator Relationship Specialty 01/27/21 Deanne Garrido, GAS OR WATER METER INSTALLER PCP - General Nurse [address] [place] [phone] 09/24/15 Arturo Gomez MD REFERRING MD Family Forwarding Address Medicine Unknown 09/24/15 Javier Murillo MD Surgery, [address] [facility] [address] Orth[address] Med Office [address] [place], [place] [address] 09/25/15 Outpatient, Radiologist 10/19/15 Renetta Melo, Nurse GAS OR WATER METER INSTALLER-COMPUTER ANALYST SUPERVISOR Practitioner [address] Med Office [address] [place], [place] [phone] 10/28/15 Harley Ramos MD Surgery, No Active License Orthopedic Do Not Use 12/30/15 Harley Ramos MD Surgery, [address] [place], [place] [id number] 01/15/16 Ivelisse Langley RN documented as of this encounter
--- OUTSIDE RECORDS SUMMARY | 2021-04-04 20:06 | XMS REPORT | Encounter Summary ---
Author Author [facility] Organization [facility] Address Unknown Phone Unavailable Care Team Providers Care Assistant Loan Processor Name Role Phone Arturo Gomez MD [phone] Unavailable Javier Murillo MD Unavailable Outpatient, Radiologist Unavailable Unavailable Renetta Melo CARE SERVICES MANAGER-ENROBER TENDER Unavailable [phone] Harley Ramos MD Unavailable Unavailable Harley Ramos MD Unavailable Ivelisse Langley RN Unavailable Unavailable Deanne Garrido CARE SERVICES MANAGER PCP Reason for Referral * Pain Authorization (Routine) - Authorized Diagnoses / Procedures Referred By Contact Referred To Conta ct Specialty Diagnoses Chronic intractable headache, unspecified headache type [facility] Endy Dupree MD [address] [place] [address] [place] [address], [address] [place] [address] Anesthesia Pain Referral ID Status Reason Start Date Expiration Visits Vi sits Date Requested Authorized [id number] Authorized 03/04/2021 03/04/2022 1 1 Reason for Visit * Reason Comments Procedure SPG BLOCK Headache * Pain Authorization (Routine) - Authorized Diagnoses / Procedures Referred By Contact Referred To Conta ct Specialty Diagnoses Chronic intractable headache, unspecified headache type Myalgia, other site Procedures [facility] Endy Dupree MD [address] [place] [address] [place] [address], [address] [place] [address] Anesthesia Pain Referral ID Status Reason Start Date Expiration Visits Vi sits Date Requested Authorized [id number] Authorized 02/24/2021 02/24/2022 1 1 Encounter Details Care Team Description Date Type Department Endy Dupree MD [address] [place], [place] [id number] Chronic intractable headache, unspecifie d headache type; Myalgia, other site 03/04/2021 Procedure visit Comp Sp[facility]tr Intervent'nl Pain: [facility]: [address], [address] [place] [address] Social History Date Tobacco Use Types Packs/Day Years Used Never Smoker 0 0 Smokeless Tobacco: Never Used Comments Alcohol Use Standard Drinks/Week No 0 (1 standard drink = 0.6 o z pure alcohol) Sex Assigned at Date Recorded Male 01/14/2020 12:11 PM CDT Date Recorded COVID-19 Exposure Response 03/04/2021 1:44 PM CDT In the last month, have you been in contact with No / Unsure someone who was confirmed or suspected to have Coronavirus / COVID-19? documented as of this encounter Last Filed Vital Signs Reading Time Taken Comments Vital Sign 150/97 03/04/2021 1:52 PM CDT Blood Pressure 76 03/04/2021 1:52 PM CDT Pulse - - Temperature - - Respiratory Rate 97% 03/04/2021 1:52 PM CDT Oxygen Saturation - - Inhaled Oxygen Concentration 82.6 kg (182 lb) 03/04/2021 1:52 PM CDT Weight 177.8 cm (5' 10") 03/04/2021 1:52 PM CDT Height 26.11 03/04/2021 1:52 PM CDT Body Mass Index documented in [...] Procedure Notes * Endy Dupree MD - 03/04/2021 2:00 PM CDT Associated Order(s): [facility] PROCEDURE: Bilateral Sphenopalatine Ganglion Block PREPROCEDURE DIAGNOSES: [...] distal hollow tip, was soaked in 0.5% bupivacai ne and then gently inserted into the nares and advanced along the superior borde r of the middle turbinate until it came to rest against the posterior nasopharyn x. A second applicator was placed in similar fashion on the other side. The applicators were left in place for 20 minutes. A syringe with 0.25% bupivaca ine was then attached to the IV catheter inserted into the tip of each applicato r and 1.5mL of 0.25% bupivacaine was injected. [...] Name Type Priority Associated Diag noses Expected: 03/04/2021, Expires: [facility] Procedures Routine Senior Recruiter ramses intractable headache, unspecified headache type documented as of this encounter Procedures Comments Procedure Name Priority Date/Time Associated Diag nosis [facility] Routine 03/04/2021 Senior Recruiter ramses intractable 2:00 PM CDT headache, unspecified headache type Myalgia, other site documented in this encounter Results * [facility] (03/04/2021 2:00 PM CDT) [...] encounter Care Teams Start Date End Date Assistant Loan Processor Relationship Specialty 01/27/21 Deanne Garrido, CARE SERVICES MANAGER PCP - General Nurse [address] [place] [phone] 09/24/15 Arturo Gomez MD REFERRING MD Family Forwarding Address Medicine Unknown 09/24/15 aJvier Murillo MD Surgery, [address] Orthopedic Med Office [address] [place] [address] 09/25/15 Outpatient, Radiologist 10/19/15 Renetta Melo Nurse CARE SERVICES MANAGER-ENROBER TENDER Practitioner [address] Med Office [address] [place] [address] 10/28/15 Harley Ramos MD Surgery, No Active License Orthopedic Do Not Use 12/30/15 Harley Ramos MD Surgery, [address] [place], [place] [phone] 01/15/16 Ivelisse Langley RN documented as of this encounter
--- OUTSIDE RECORDS SUMMARY | 2021-04-04 20:06 | XMS REPORT | Encounter Summary ---
Author Author [facility] Organization [facility] Address Unknown Phone Unavailable Care Team Providers Care Retirement Plan Counselor Name Role Phone Arturo Gomez MD [phone] Unavailable Javier Murillo MD Unavailable Outpatient, Radiologist Unavailable Unavailable Renetta Melo MEDICAL RECORDS SPECIALIST-OYSTER CULTIVATOR Unavailable [phone] Harley Ramos MD Unavailable Unavailable Harley Ramos MD Unavailable Ivelisse Langley RN Unavailable Unavailable Deanne Garrido APRN PCP Encounter Details Care Team Description Date Type Department 02/15/2021 Travel Social History Date Tobacco Use Types Packs/Day Years Used Never Smoker 0 0 Smokeless Tobacco: Never Used Comments Alcohol Use Standard Drinks/Week No 0 (1 standard drink = 0.6 o z pure alcohol) Sex Assigned at Date Recorded Male 01/14/2020 12:11 PM CDT Date Recorded COVID-19 Exposure Response 02/15/2021 12:17 PM CDT In the last month, have [...] AM CDT PHQ-9 Depression Total Score: 13 02/15/2021 12:26 PM CDT A fall risk assessment has been complet ed for the patient 01/08/2021 11:55 AM CDT PHQ-2 Depression Total Score: 2 documented as of this encounter Care Teams Start Date End Date Retirement Plan Counselor Relationship Specialty 01/27/21 Deanne Garrido, MEDICAL RECORDS SPECIALIST PCP - General Nurse [address] [place] [phone] 09/24/15 Arturo Gomez MD REFERRING MD Family Forwarding Address Medicine Unknown 09/24/15 Javier Murillo MD Surgery, [address] Orthopedic Med Office [address] [place] [address] 09/25/15 Outpatient, Radiologist 10/19/15 Renetta Melo, Nurse MEDICAL RECORDS SPECIALIST-OYSTER CULTIVATOR Practitioner [address] Med [address] [place] [address] 10/28/15 Harley Ramos MD Surgery, No Active License Orthopedic Do Not Use 12/30/15 Harley Ramos MD Surgery, [address] [place], [place] [phone] 01/15/16 Ivelisse Langley RN documented as of this encounter
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
--- OUTSIDE RECORDS SUMMARY | 2021-04-04 20:06 | XMS REPORT | Encounter Summary ---
Author Author [facility] Organization [facility] Address Unknown Phone Unavailable Care Team Providers Care Leather Seasoner Name Role Phone Arturo Gomez MD [phone] Unavailable Javier Murillo MD Unavailable Outpatient, Radiologist Unavailable Unavailable Renetta Melo ENVIRONMENTAL STUDIES FACULTY MEMBER-SWITCHGEAR REPAIRER Unavailable [phone] Harley Ramos MD Unavailable Unavailable Harley Ramos MD Unavailable Ivelisse Langley RN Unavailable Unavailable Deanne Garrido ENVIRONMENTAL STUDIES FACULTY MEMBER PCP Reason for Referral * Pain Authorization (Routine) - Authorized Diagnoses / Procedures Referred By Contact Referred To Conta ct Specialty Diagnoses Chronic intractable headache, unspecified headache type Procedures [facility] Endy Dupree MD [address] [place] [address] [id number] [address] [place] [address] Anesthesia Pain Referral ID Status Reason Start Date Expiration Visits Vi sits Date Requested Authorized [id number] Authorized 02/15/2021 02/15/2022 1 1 Reason for Visit * Reason Onset Date Comments Follow Up Procedure TPI Erroneous 02/15/2021 encounter-disregard * Pain Authorization (Routine) - Authorized Diagnoses / Procedures Referred By Contact Referred To Conta ct Specialty Diagnoses Chronic intractable headache, unspecified headache type Myalgia, other site Procedures [facility] IN[facility] Endy Dupree MD [address] [place] [address] [place] [address] [place] [address] Anesthesia Pain Referral ID Status Reason Start Date Expiration Visits Vi sits Date Requested Authorized [id number] Authorized 01/25/2021 01/25/2022 1 1 Encounter Details Care Team Description Date Type Department Endy Dupree MD [address] [place] [address] ERRONEOUS ENCOUNTER--DISREGARD (Primary Dx); Chronic intractable headache, unspecified headache type; Myalgia, other site 02/15/2021 Procedure visit [facility] Pain: [facility]: [address] [place] [address] Social History Date Tobacco Use [...] Signs Reading Time Taken Comments Vital Sign 131/90 02/15/2021 12:25 PM CDT Blood Pressure 84 02/15/2021 12:25 PM CDT Pulse 36.7 C (98.1 F) 02/15/2021 12:25 PM CDT Temperature - - Respiratory Rate 100% 02/15/2021 12:25 PM CDT Oxygen Saturation - - Inhaled Oxygen Concentration 82.3 kg (181 lb 6.4 oz) 02/15/2021 12:25 PM CDT Weight 177.8 cm (5' 10") 02/15/2021 12:25 PM CDT Height 26.03 02/15/2021 12:25 PM CDT Body Mass Index documented in [...] as of this encounter Progress Notes * Endy Dupree MD - 02/15/2021 12:45 PM CDT Procedure cancelled. Reschedule on for SPG block if approved by [facility] for intractable headache. No charge. This encounter was created in error. Please disregard. documented in this encounter Plan of Treatment Not on filedocumented as of this encounter Results * VA INJECTION AA&/STRD OTHER PERIPHERAL NERVE/BRANCH (02/18/2021 12:45 PM CDT) Narrative OTHER OUTSIDE LAB - 02/18/2021 12:45 PM CDT Endy Dupree MD 02/22/2021 8:42 AM [facility] Nerve: other peripheral nerve or branch (Please Comment) (Sphenopalatine ganglion nerve block) Laterality: bilateral Consent: Consent obtained: written Consent given by: patient Alternatives discussed: no treatment Discussed with patient the purpose of the treatment/procedure, other ways of treating my condition, including no treatment/ procedure and the risks and benefits of the alternatives. Patient has decided to proceed with treatment/procedure. [place] Protocol: Relevant documents: relevant documents present and verified Test results: test results available and properly labeled Imaging studies: imaging studies available Required items: required blood products, implants, devices, and special equipment available Site marked: the operative site was marked Patient identity confirmed: Patient identify confirmed verbally with patient. Time out: Immediately prior to procedure a "time out" was called to verify the correct patient, procedure, equipment, research support specialist and site/side marked as required Procedures Details: Indications: Pain Relief Preparation: Patient [...] distal hollow tip, was soaked in 0.25% bupivacaine and then gently inserted into the nares and advanced along the superior border of the middle turbinate until it came to rest against the posterior nasopharynx. A second applicator was placed in similar fashion on the other side. The applicators were left in place for 20 minutes. A syringe with 0.25% bupivacaine was then attached to the IV catheter inserted into the tip of each applicator and 0.5mL of 0.5% bupivacaine was injected. [...] documented in this encounter Visit Diagnoses Diagnosis ERRONEOUS ENCOUNTER--DISREGARD - Primar y Chronic intractable headache, unspecifi ed headache type Myalgia, other site Chronic intractable headache, unspecifi ed headache type - Primary documented in this encounter Orders First Ordered Date Procedures Count Last Ordered Date [facility] INJECTION 1 1 documented in this encounter Additional Health Concerns Noted Time Assessment 01/10/2020 9:03 AM CDT PHQ-9 Depression Total Score: 13 02/15/2021 12:26 PM CDT A fall risk assessment has been complet ed for the patient 01/08/2021 11:55 AM CDT PHQ-2 Depression Total Score: 2 documented as of this encounter Care Teams Start Date End Date Leather Seasoner Relationship Specialty 01/27/21 Deanne Garrido, ENVIRONMENTAL STUDIES FACULTY MEMBER PCP - General Nurse [address] [place] [phone] 09/24/15 Arturo Gomez MD REFERRING MD Family Forwarding Address Medicine Unknown 09/24/15 Javier Murillo MD Surgery, [address] Orthopedic Med Office [address] [place] [address] 09/25/15 Outpatient, Radiologist 10/19/15 Renetta Melo, Nurse ENVIRONMENTAL STUDIES FACULTY MEMBER-SWITCHGEAR REPAIRER Practitioner [address] Med Office [address] [place], [place] [phone] 10/28/15 Harley Ramos MD Surgery, No Active License Orthopedic Do Not Use 12/30/15 Harley Ramos MD Surgery, [address] [place], [place] [id number] 01/15/16 Ivelisse Langley RN documented as of this encounter
--- OUTSIDE RECORDS SUMMARY | 2021-04-04 20:06 | XMS REPORT | Encounter Summary ---
Author Author [facility] Organization [facility] Address Unknown Phone Unavailable Care Team Providers Care Senior Director Of [employer] Name Role Phone Arturo Gomez MD [phone] Unavailable Javier Murillo MD Unavailable Outpatient, Radiologist Unavailable Unavailable Renetta Melo LONGWALL FOREMAN-CYBER FORENSIC SPECIALIST Unavailable [phone] Harley Ramos MD Unavailable Unavailable Harley Ramos MD Unavailable Ivelisse Langley RN Unavailable Unavailable Deanne Garrido APRN PCP Encounter Details Care Team Description Date Type Department 03/04/2021 Travel Social History Date Tobacco Use Types [...] encounter Care Teams Start Date End Date Senior Director Of [employer] Relationship Specialty 01/27/21 Deanne Garrido, LONGWALL FOREMAN PCP - General Nurse [address] [place] [phone] 09/24/15 Arturo Gomez MD REFERRING MD Family Forwarding Address Medicine Unknown 09/24/15 Javier Murillo MD Surgery, [address] Orthopedic Med [address] [place] [address] 09/25/15 Outpatient, Radiologist 10/19/15 Renetta Melo, Nurse LONGWALL FOREMAN-CYBER FORENSIC SPECIALIST Practitioner [address] Med [address] [place] [address] 10/28/15 Harley Ramos MD Surgery, No Active License Orthopedic Do Not Use 12/30/15 Harley Ramos MD Surgery, [address] [place], [place] [phone] 01/15/16 Ivelisse Langley RN documented as of this encounter
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
--- OUTSIDE RECORDS SUMMARY | 2021-04-04 20:06 | XMS REPORT | Encounter Summary ---
Author Author [facility] Organization [facility] Address Unknown Phone Unavailable Care Team Providers Care Diet Supervisor Name Role Phone Arturo Gomez MD [phone] Unavailable Javier Murillo MD Unavailable Outpatient, Radiologist Unavailable Unavailable Renetta Melo NURSE [employer]ER Unavailable [phone] Harley Ramos MD Unavailable Unavailable Harley Ramos MD Unavailable Ivelisse Langley RN Unavailable Unavailable Deanne Garrido NURSE [employer] PCP Reason for Referral * Radiology Services (Routine) - Authorized Diagnoses / Procedures Referred By Contact Referred To Conta ct Specialty Diagnoses Personal history of osteosarcoma Procedures [place] [address] Med Office B[address] [place] [address] [place] [address] Radiology Referral ID Status Reason Start Date Expiration Visits Vi sits Date Requested Authorized [id number] Authorized 03/26/2020 09/23/2021 1 1 RAL MELT SPECIALIST Reason for Visit * Radiology Services (Routine) - Authorized Diagnoses / Procedures Referred By Contact Referred To Conta ct Specialty Diagnoses Personal history of osteosarcoma Procedures [place] [address] Med Office B[address] [place] [address] [place] [address] Radiology Referral ID Status Reason Start Date Expiration Visits Vi sits Date Requested Authorized [id number] Authorized 03/26/2020 09/23/2021 1 1 Encounter Details Care Team Description Date [place] [address] Med Office B[address] [place] [address] 03/23/[address]: [place], Encounter [facility] [address] [place] [address] Social History Date Tobacco Use Types Packs/Day Years Used Never Smoker 0 0 Smokeless Tobacco: Never Used Comments Alcohol Use Standard Drinks/Week No 0 (1 standard drink = 0.6 o z pure alcohol) Sex Assigned at Date Recorded Male 01/14/2020 12:11 PM CDT Date Recorded COVID-19 Exposure Response 03/23/2021 12:49 PM CENTRAL MELT SPECIALIST In the last month, have you been [...] Medical Left hinged 1 each 1 Supply [facility] knee brace 11/23/2017 Miscellaneous Medical Neoprene (or 1 Device 0 Supply [facility] equivalent) left knee sleeve with patella cut-out. [...] Procedure Name Priority Date/Time Associated Diag nosis CT CHEST WO CONTRAST Routine 03/23/2021 Personal history of 1:11 PM CENTRAL MELT SPECIALIST osteosarcoma documented in this encounter Results * CT CHEST WO CONTRAST (03/23/2021 1:11 PM CENTRAL MELT SPECIALIST) Modality Anatomical Region Laterality Computed Tomography Chest Specimen Impressions [facility] RESULTS - 03/23/2021 3:14 PM CENTRAL MELT SPECIALIST No evidence of metastatic disease to the thorax. Finalized by Endy Michel M.D. on 03/23/2021 3:14 PM. Dictated by Endy Michel M.D. on 03/23/2021 3:05 PM. Narrative [facility] RESULTS - 03/23/2021 3:14 [address]AL MELT SPECIALIST CT CHEST WO CONTRAST INDICATION: sarcoma surveillance. 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 documented in this encounter Additional Health Concerns Noted Time Assessment 01/10/2020 9:03 AM CDT PHQ-9 Depression Total Score: 13 03/23/2021 2:24 PM CENTRAL MELT SPECIALIST A fall risk assessment has been complet ed for the patient 01/08/2021 11:55 AM CDT PHQ-2 Depression Total Score: 2 documented as of this encounter Care Teams Start Date End Date Diet Supervisor Relationship Specialty 01/27/21 Deanne Garrido, NURSE [employer] PCP - General Nurse [address] [place] [address] 09/24/15 Arturo Gomez MD REFERRING Family Forwarding Address Medicine Unknown 09/24/15 Javier Murillo MD Surgery, [address] Orthopedic Med Office d [address] [place], [place] [address] 09/25/15 Outpatient, Radiologist 10/19/15 Renetta Melo Nurse NURSE [employer] Practitioner [address] Med Office Bld [address] [place] [address] 10/28/15 Harley Ramos MD Surgery, No Active License Orthopedic Do Not Use 12/30/15 Harley Ramos MD Surgery, [address] [facility] [address] [place] [address] 01/15/16 Ivelisse Langley RN documented as of this encounter
--- NOTE | 2021-04-04 20:19 | ED Upper Extremity ---
General Stated Complaint: LT SHOULDER PAIN Source: patient History of Present Illness Date Seen by Provider: Apr 04, 2021 Time Seen by Provider: 20:03 Initial Comments 40-year-old male presenting with complaints of sudden onset left shoulder pain without any injury. He states this started on April 01. He denies any direct trauma or injury to the shoulder. He denies any heavy lifting or straining. He denies any fall. He was having some tingling in his fingers initially after the pain started. He states that the pain has not improved with Tylenol or ibuprofen. He has had worsening pain ever since . Since the pain was so severe today he had tried to go to urgent care but they had a long wait until he was unable to be seen. He came in tonight since the pain was still severe and was keeping him from being able to rest. Onset: other (04/01) Severity: severe Pain/Injury Location: left shoulder (AC joint) Method of Injury: unknown Modifying Factors: Worse With Movement Allergies and Home Medications Allergies Coded Allergies: No Allergy Information Available (Unverified , 09/25/20) Patient Home Medication List Home Medication List Reviewed: Yes Methocarbamol (Methocarbamol) 750 Mg Tablet, 1,500 MG PO TID PRN for muscle spasm/shoulder pain Prescribed by: STAN WILKES on 04/04/212057 Review of Systems Constitutional: No chills, No fever EENTM: no symptoms reported Respiratory: no symptoms reported Cardiovascular: no symptoms reported Gastrointestinal: no symptoms reported Genitourinary: no symptoms reported Musculoskeletal: joint pain (left shoulder, left AC joint) Skin: no symptoms reported Psychiatric/Neurological: See HPI Past Gjolgzt-Wilfwh-Aruxil Hx Past Medical History Surgeries: Yes Orthopedic Physical Exam Vital Signs Vital Signs - First Documented 04/04/21 20:07 Temp 36.0 Pulse 96 Resp 16 B/P (MAP) 156/116 (129) O2 Delivery Room Air Capillary Refill : Height, Weight, BMI Height: '" Weight: lbs. oz. 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 Progress Note #2: Progress Note No acute fracture or bony abnormality noted on imaging. Counseled on results. Treat with a sling and try Robaxin for a muscle relaxer. Sent with four hydrocodone pain pills to help with rest at night. Continue with ibuprofen, rest the shoulder with the sling and ice for pain and inflammation. Check back with primary provider for continued pain and symptoms. May need an MRI for further evaluation. Also given information for Orthopedics if having trouble getting in with pcp Diagnostic Imaging Diagonstic Imaging: Xray Plain Films/CT/US/NM/MRI: other (shoulder) Comments [facility] [place] NAME: [facility] REC#: [id number] PT STATUS: REG ER : 1980 PHYSICIAN: STAN WILKES MD ADMIT DATE: 04/04/21/ER FS Signed Date of Exam:04/04/21 SHOULDER 3 VIEW LEFT Indication: Left clavicle pain 2 views of left clavicle and 4 views of left shoulder show no fracture, dislocation or other acute abnormalities. IMPRESSION: Negative left clavicle and shoulder Dictated by: Dictated on workstation # [id number] Dict: 04/04/212028 Trans: 04/04/212029 TC [id number] Interpreted by: DANIELE FREEMAN MD Electronically signed by: DANIELE FREEMAN MD 04/04/212029 Reviewed: Reviewed by Me Diagonstic Imaging: Xray Plain Films/CT/US/NM/MRI: other (clavicle) Comments [facility] [place] NAME: CRISELDA [facility] REC#: [id number] PT STATUS: REG ER : 1980 PHYSICIAN: STAN WILKES MD ADMIT DATE: 04/04/21/ER FS Signed Date of Exam:04/04/21 CLAVICLE LEFT Indication: Left clavicle pain 2 views of left clavicle show no fracture, dislocation or other acute abnormalities. IMPRESSION: Negative left clavicle Dictated by: Dictated on workstation # [id number] Dict: 04/04/212027 Trans: 04/04/212029 TCB [id number] Interpreted by: DANIELE FREEMAN MD Electronically signed by: DANIELE FREEMAN MD 04/04/212029 Reviewed: Reviewed by Me Departure Impression Primary Impression: Pain in left acromioclavicular joint Additional Impression: Left shoulder pain Qualified Codes: M25.512 - Pain in left shoulder Disposition: 01 HOME, SELF-CARE Condition: Stable Departure-Patient Inst. Decision time for Depature: 20:52 Referrals: GAETANO SOARES ANNA K APRN (PCP) Primary Care Physician NED WRIGHT MD Patient Instructions: Shoulder Pain ED, Muscle and Bone Pain (DC), Opioids for Short-Term Treatment of Pain ED Add. Discharge Instructions: Use sling to help your left shoulder rest and take some pressure off the joint. Use this for the next 4-5 days then try to move your arm and shoulder more and have your arm out of the sling more to help prevent the shoulder from freezing up on you. Try using the muscle relaxer along with Ibuprofen to help with pain and inflammation and muscle spasms. For severe pain use the Hydrocodone. Call and follow up with your regular provider. If you have trouble getting in to the clinic you could try calling the transmission repairer Orthopedics doctor, Dr. Ned Wright, from [facility] about follow up. Or you could try Nurse Practitioner Dilip Soares. You may need an MRI of the shoulder area to see what is causing the pain since it came on without injury. Scripts Methocarbamol (Methocarbamol) 750 Mg Tablet 1500 MG PO TID PRN for muscle spasm/shoulder pain for 7 Days, #42 TAB 0 Refills Prov: STAN WILKES MD 04/04/21 STAN WILKES MD Apr 04, 2021 20:19
--- NOTE | 2021-04-04 20:31 | Diagnostic Imaging Report ---
Indication: Left clavicle pain 2 views of left clavicle and 4 views of left shoulder show no fracture, dislocation or other acute abnormalities. IMPRESSION: Negative left clavicle and shoulder Dictated by: Dictated on workstation # [id number]
--- NOTE | 2021-04-04 20:31 | Diagnostic Imaging Report ---
Indication: Left clavicle pain 2 views of left clavicle show no fracture, dislocation or other acute abnormalities. IMPRESSION: Negative left clavicle Dictated by: Dictated on workstation # [id number]
[2021-04-04] MEDS ORDERED: METH-732 PO (20:58)
[2021-04-04 21:15] VITALS: BP 133/96
== END 2021-04-04 21:04 | disposition home or self-care (01) ==
LOC: EDUNIT# 20:00 → ER FS 20:03
DX: M25.512 Pain in left shoulder (principal)
CPT/HCPCS: 73000; 73030

== ENCOUNTER 2021-06-03 17:03 | Emergency (ER) | payer MEDICARE ==
[~2021-06-03] VITALS: Ht 177 cm; Wt 82.6 kg
[~2021-06-03 17:03] MED LIST changes: -GADOBUTROL 7.5 MMOL/7.5 ML (GADAVIST) VIAL IV ONE; +METH-732 PO
[2021-06-03 17:18] VITALS: BP 154/107
[2021-06-03 17:45] LABS: BASOPHILS # (AUTO) 0.1 10^3/uL (0.0-0.1); BASOPHILS % (AUTO) 1 % (0-10); EOSINOPHILS % (AUTO) 0 % (0-10); HEMATOCRIT 42 % (40-54); LYMPHOCYTES # (AUTO) 2.5 10^3/uL (1.0-4.0); LYMPHOCYTES % (AUTO) 32 % (12-44); MEAN CORPUSCULAR HEMOGLOBIN 31 pg (25-34); MEAN CORPUSCULAR HGB CONC 36 g/dL (32-36); MEAN CORPUSCULAR VOLUME 86 fL (80-99); MEAN PLATELET VOLUME 9.6 fL (9.0-12.2); MONOCYTES # (AUTO) 0.6 10^3/uL (0.0-1.0); MONOCYTES % (AUTO) 8 % (0-12); NEUTROPHILS # (AUTO) 4.5 10^3/uL (1.8-7.8); NEUTROPHILS % (AUTO) 59 % (42-75); PLATELET COUNT 218 10^3/uL (130-400); WHITE BLOOD COUNT 7.7 10^3/uL (4.3-11.0)
--- NOTE | 2021-06-03 17:49 | Diagnostic Imaging Report ---
INDICATION: Chest pain. FINDINGS: The lungs are clear. The heart size and pulmonary vascularity are normal. There is no failure, effusion, or pneumothorax. No free air beneath the diaphragms. IMPRESSION: Normal frontal chest x-ray. Dictated by: Dictated on workstation # [id number]
[2021-06-03 18:14] LABS: BUN/CREATININE RATIO 13; CALCIUM 9.5 MG/DL (8.5-10.1); CARBON DIOXIDE 24 MMOL/L (21-32); CHLORIDE 101 MMOL/L (98-107); CREATININE SERUM 1.27 MG/DL (0.60-1.30); GFR ESTIMATED 72; GLUCOSE 120 MG/DL (70-105); POTASSIUM 3.4 MMOL/L (3.6-5.0); SODIUM 139 MMOL/L (135-145)
--- NOTE | 2021-06-03 18:14 | ED Cardiac General ---
History of Present Illness General Chief Complaint: Chest Pain Stated Complaint: SOB,CHEST PRESSURE Nursing Triage Note: Patient has presented to ER with cc of ongoing symptoms since having covid 2 weeks ago. He is concerned about having chest pressure for the last 2 weeks. He has been tired since having covid. He has been taking tyelonl and ibuprofen for his symptoms. Source: patient Exam Limitations: no limitations History of Present Illness Date Seen by Provider: Jun 03, 2021 Time Seen by Provider: 17:30 Initial Comments Patient is a 40-year-old male diagnosed with Covid 2 weeks ago who presents with persistent chest pressure, shortness of breath and fatigue. He reports symptoms mildly worsened with exertion. He denies fever chills, nausea vomiting or sweats. No leg pain or swelling. Patient did take Tylenol prior to ED arrival. No history of CAD, cardiomyopathy PE or DVT. Denies history of peptic ulcer disease. Patient took antacid prior to ED arrival without resolution of symptoms. Timing/Duration: other (2 weeks) Severity: mild Location: epigastric Activities at Onset: none Prior CP/Workup: no prior chest pain Associated Systoms: Denies Symptoms Allergies and Home Medications Allergies Coded Allergies: No Allergy Information Available (Unverified , 09/25/20) Patient Home Medication List Home Medication List Reviewed: Yes Methocarbamol (Methocarbamol) 750 Mg Tablet, 1,500 MG PO TID PRN for muscle spasm/shoulder pain Prescribed by: STAN WILKES on 04/04/212057 Review of Systems Review of Systems Constitutional: see HPI EENTM: See HPI Respiratory: See HPI Cardiovascular: See HPI Gastrointestinal: See HPI Genitourinary: See HPI Musculoskeletal: see HPI Skin: see HPI Psychiatric/Neurological: See HPI Endocrine: See HPI Hematologic/Lymphatic: See HPI Past Dfwfvee-Xpsgbn-Bbgcin Hx Patient Social History Tobacco Use?: Yes Use of E-Cig and/or Vaping dev: No Substance use?: No Alcohol Use?: No Pt feels they are or have been: No Immunizations Up To Date Second COVID19 Vaccination [place]: 08/26 Past Medical History Surgeries: Yes Orthopedic Physical Exam Vital Signs Vital Signs - First Documented 06/03/21 17:18 Pulse 98 Resp 16 B/P (MAP) 154/107 (123) Pulse Ox 99 O2 Delivery Room Air Capillary Refill : Height, Weight, BMI Height: '" Weight: lbs. oz. kg; 26.00 BMI Method: General Appearance: No Apparent Distress, WD/WN HEENT: Normal ENT Inspection, Pharynx Normal Respiratory: Lungs Clear Cardiovascular: Regular Rate, Rhythm Gastrointestinal: Soft, Tenderness (Epigastric pain tenderness) Neurologic/Psychiatric: Alert, Oriented x3 Skin: Normal Color Focused Exam Sepsis Stage: Ruled Out Progress/Results/Core Measures Results/Orders Lab Results Laboratory Tests Test 06/03/21 17:05 Range/Units White Blood Count 7.7 4.3-11.0 10^3/uL Red Blood Count 4.87 4.30-5.52 10^6/uL Hemoglobin 15.0 13.3-17.7 g/dL Hematocrit 42 40-54 % Mean Corpuscular Volume 86 80-99 fL Mean Corpuscular Hemoglobin 31 25-34 pg Mean Corpuscular Hemoglobin Concent 36 32-36 g/dL Red Cell Distribution Width 12.0 10.0-14.5 % Platelet Count 218 130-400 10^3/uL Mean Platelet Volume 9.6 9.0-12.2 fL Immature Granulocyte % (Auto) 1 % Neutrophils (%) (Auto) 59 42-75 % Lymphocytes (%) (Auto) 32 12-44 % Monocytes (%) (Auto) 8 0-12 % Eosinophils (%) (Auto) 0 0-10 % Basophils (%) (Auto) 1 0-10 % Neutrophils # (Auto) 4.5 1.8-7.8 10^3/uL Lymphocytes # (Auto) 2.5 1.0-4.0 10^3/uL Monocytes # (Auto) 0.6 0.0-1.0 10^3/uL Eosinophils # (Auto) 0.0 0.0-0.3 10^3/uL Basophils # (Auto) 0.1 0.0-0.1 10^3/uL Immature Granulocyte # (Auto) 0.0 0.0-0.1 10^3/uL D-Dimer 0.33 0.00-0.49 UG/ML Sodium Level 139 135-145 MMOL/L Potassium Level 3.4 L 3.6-5.0 MMOL/L Chloride Level 101 98-107 MMOL/L Carbon Dioxide Level 24 21-32 MMOL/L Anion Gap 14 5-14 MMOL/L Blood Urea Nitrogen 16 7-18 MG/DL Creatinine 1.27 0.60-1.30 MG/DL Estimat Glomerular Filtration Rate 72 BUN/Creatinine Ratio 13 Glucose Level 120 H 70-105 MG/DL Calcium Level 9.5 8.5-10.1 MG/DL Corrected Calcium 8.5-10.1 MG/DL Total Bilirubin 1.2 H 0.1-1.0 MG/DL Aspartate Amino Transf (AST/SGOT) 27 5-34 U/L Alanine Aminotransferase (ALT/SGPT) 43 0-55 U/L Alkaline Phosphatase 63 40-136 U/L Troponin I < 0.30 <0.30 NG/ML C-Reactive Protein 1.10 H <0.50 MG/DL Total Protein 8.0 6.4-8.2 GM/DL Albumin 5.1 H 3.2-4.5 GM/DL Smear Scan OK My Orders Orders - JAVIER,KOLBY DO Ekg-Prn For Chest Pain Or Rhyt (06/03/21 17:32) Troponin I Fs (06/03/21 17:32) Chest 1 View Ap/Pa Only (06/03/21 17:32) Cbc With Automated Diff (06/03/21 17:40) Comprehensive Metabolic Panel (06/03/21 17:40) Troponin I Fs (06/03/21 17:40) Fibrin Degradation Products (06/03/21 17:40) Crp Fs (06/03/21 17:40) Vital Signs/I&O 06/03/21 17:18 Pulse 98 Resp 16 B/P (MAP) 154/107 (123) Pulse Ox 99 O2 Delivery Room Air Blood Pressure Mean: 123 Departure Communication (Admissions) Chest x-ray: No acute cardiopulmonary disease per radiology report EKG: Sinus rhythm, rate 94, no acute ST-T wave changes, normal TN, QRS, QTc intervals EKG, lab and imaging reviewed. Patient has multiple symptoms possible GI related, versus post Covid chest wall pain versus anxiety given the of a family member 2 days ago. Etiology is unclear. Recommend sure watchful waiting supportive care in PCP follow-up. Return precautions reviewed. Patient verbalizes understanding agreement discharge instructions prior to departure. Impression Primary Impression: Chest pain Disposition: 01 HOME, SELF-CARE Condition: Stable Departure-Patient Inst. Decision time for Depature: 19:03 Referrals: O'DELL,KAMLESH K RECREATIONAL RESORT MANAGER (PCP/Family) Primary Care Physician Patient Instructions: Chest Pain Add. Discharge Instructions: You were evaluated in the emergency department for chest pain. EKG lab and imaging were performed and are nondiagnostic. The exact cause of your symptoms has not been determined. Please take ibuprofen 3 times daily and Pepcid 20 mg twice daily for pain for the next 10 to 12 days and follow-up with a local primary care provider for reevaluation. In the meantime if you develop new or worsening symptoms, return to the emergency department. All discharge instructions reviewed with patient and/or family. Voiced unders rishi. KOLBY JAVIER DO Jun 03, 2021 18:14
[2021-06-03 18:15] LABS: ALANINE AMINOTRANSFERASE 43 U/L (0-55); ALBUMIN 5.1 GM/DL (3.2-4.5); ALKALINE PHOSPHATASE 63 U/L (40-136); BILIRUBIN,TOTAL 1.2 MG/DL (0.1-1.0)
[2021-06-03 18:28] LABS: SMEAR SCAN COMMENT OK
== END 2021-06-03 19:07 | disposition home or self-care (01) ==
LOC: EDUNIT# 17:03 → ER FS 17:04
DX: R07.9 Chest pain, unspecified (principal); Z72.0 Tobacco use; Z86.16 Personal history of COVID-19
CPT/HCPCS: 71045; 80053; 84484; 85025; 85379; 86141; 93005

== ENCOUNTER → 2021-06-15 | Outpatient (CLI) | payer MEDICARE ==
[2021-06-15 09:23] LABS: BASOPHILS # (AUTO) 0.1 10^3/uL (0.0-0.1); BASOPHILS % (AUTO) 1 % (0-10); EOSINOPHILS # (AUTO) 0.1 10^3/uL (0.0-0.3); EOSINOPHILS % (AUTO) 1 % (0-10); HEMATOCRIT 39 % (40-54); LYMPHOCYTES # (AUTO) 2.4 10^3/uL (1.0-4.0); LYMPHOCYTES % (AUTO) 45 % (12-44); MEAN CORPUSCULAR HEMOGLOBIN 31 pg (25-34); MEAN CORPUSCULAR HGB CONC 36 g/dL (32-36); MEAN CORPUSCULAR VOLUME 87 fL (80-99); MEAN PLATELET VOLUME 9.6 fL (9.0-12.2); MONOCYTES # (AUTO) 0.4 10^3/uL (0.0-1.0); MONOCYTES % (AUTO) 7 % (0-12); NEUTROPHILS # (AUTO) 2.4 10^3/uL (1.8-7.8); NEUTROPHILS % (AUTO) 45 % (42-75); PLATELET COUNT 210 10^3/uL (130-400); WHITE BLOOD COUNT 5.3 10^3/uL (4.3-11.0)
[2021-06-15 09:47] LABS: ALKALINE PHOSPHATASE 64 U/L (40-136); BILIRUBIN,TOTAL 0.9 MG/DL (0.1-1.0); BUN/CREATININE RATIO 13; CARBON DIOXIDE 25 MMOL/L (21-32); CHLORIDE 104 MMOL/L (98-107); GFR ESTIMATED 86; GLUCOSE 104 MG/DL (70-105); POTASSIUM 3.8 MMOL/L (3.6-5.0); SODIUM 139 MMOL/L (135-145)
[2021-06-15 09:48] LABS: ALANINE AMINOTRANSFERASE 55 U/L (0-55); ALBUMIN 4.6 GM/DL (3.2-4.5); TOTAL PROTEIN 7.1 GM/DL (6.4-8.2)
[2021-06-15 10:04] LABS: ATYPICAL LYMPHOCYTES 38 %; BAND NEUTROPHILS 7 %; BASOPHILS % (MANUAL) 0 %; LYMPHOCYTES % (MANUAL) 6 %; MONOCYTES % (MANUAL) 7 %; NEUTROPHILS % (MANUAL) 41 %
[2021-06-15 10:05] LABS: EOSINOPHILS % (MANUAL) 1 %
[2021-06-15 10:06] LABS: PLATELET ESTIMATE NORMAL; RBC MORPH NORMAL
== END ==
LOC: LAB FS 08:51
PROVIDERS: ATTEND Nurse Practitioner Family
DX: R07.89 Other chest pain (principal); R53.83 Other fatigue; M54.2 Cervicalgia; Z86.16 Personal history of COVID-19
CPT/HCPCS: 36415; 80053; 84484; 85007; 85027; 85379; 86141

== ENCOUNTER → 2021-06-21 | Outpatient (CLI) | payer MEDICARE | LOC: CARD 12:00 | PROVIDERS: ATTEND Internal Medicine Cardiovascular Disease | DX: R07.9 Chest pain, unspecified (principal); U09.9 Post COVID-19 condition, unspecified | CPT/HCPCS: 93306 ==